=== PATIENT | female | born 1950 | race African-American/Black ===

== ENCOUNTER 2017-10-15 16:19 | Inpatient (IN) | payer MEDICARE, MEDICAID ==
[~2017-10-15] VITALS: Ht 162.6 cm; Wt 118.2 kg
[2017-10-15 17:26] LABS: Basophils # (auto) 0.1 uL; Basophils % (auto) 0.7 % (0.0-2.0); Eosinophils # (auto) 0.2 uL; Eosinophils % (auto) 3.2 % (0.0-7.0); Hematocrit 41.6 % (36.0-46.0); Hemoglobin 13.3 g/dL (12.2-16.2); Lymphocytes # (auto) 1.7 uL; Lymphocytes % (auto) 22.1 % (10.0-50.0); Mean Corpuscular Hemoglobin 29.1 pg (28.0-32.0); Mean Corpuscular Hgb Conc. 32.1 g/dL (32.0-36.0); Mean Corpuscular Volume 90.8 fL (80.0-100.0); Monocytes # (auto) 0.5 uL; Monocytes % (auto) 6.3 % (0.0-12.0); Neutrophils # (auto) 5.2 uL; Neutrophils % (auto) 67.7 % (37.0-80.0); Nucleated Red Blood Cells % 0.1 %; Platelet Count (auto) 322 10^3/uL (140-450); Red Blood Cells 4.58 10^6/uL (4.0-5.20); Red Cell Distribution Width 15.1 % (11.8-14.3); White Blood Cell 7.7 10^3/uL (4.4-10.8)
[2017-10-15 17:34] LABS: Albumin 3.5 g/dL (3.4-5.0); BUN/Creatinine Ratio 12.5; Calcium 9.2 mg/dL (8.5-10.1); Potassium 3.8 mmol/L (3.5-5.1)
[2017-10-15 17:37] LABS: Bilirubin, Total 0.6 mg/dL (0.2-1.0); Total Protein 8.2 g/dL (6.4-8.2)
[2017-10-15 17:38] LABS: Lactic Acid w/Reflex 2.3 mmol/L (0.4-2.0)
[2017-10-16] MEDS ORDERED: cefTRIAXone 1GM/10ml IVPUSH 10 ML IV ONE (00:15)
[2017-10-16] MEDS ORDERED: VANCOMYCIN 1GM/250ML 250 ML IV ONE (00:15)
[2017-10-16] MEDS ORDERED: MEPERIDINE HCL (50 MG/ML) 1 ML VIAL IV ONE (00:15)
[2017-10-16] MEDS ORDERED: ONDANSETRON HCL 4 MG/2 ML VIAL ONE (00:27)
[2017-10-16] MEDS ORDERED: ONDANSETRON HCL 4 MG/2 ML VIAL IV ONE (01:00)
[2017-10-16 01:47] LABS: Urine Bacteria NONE SEEN /hpf (None Seen); Urine Blood Negative /uL (Negative); Urine Mucus FEW (None Seen); Urine Specific Gravity 1.012 (1.001-1.035); Urine WBC 3 /hpf (0 - 5)
[2017-10-16] MEDS ORDERED: TEMAZEPAM 15 MG CAP PO PRN (03:00)
[2017-10-16] MEDS ORDERED: HYDROcodone-ACET 5/325MG TAB PO PRN (03:00)
[2017-10-16] MEDS ORDERED: SODIUM CHLORIDE 0.9% 1,000 ML IV ONE (03:00)
[2017-10-16] MEDS ORDERED: MORPHINE SULFATE 4 MG/ML SYR/VIAL IV PRN (03:00)
[2017-10-16] MEDS ORDERED: ONDANSETRON HCL 4 MG/2 ML VIAL IV PRN (03:00)
[2017-10-16] MEDS ORDERED: ACETAMINOPHEN 325 MG TAB PO PRN (03:00)
[2017-10-16] MEDS ORDERED: METOPROLOL TARTRATE 1MG/1ML-5ML VIAL IV ONE (03:00)
[2017-10-16 06:00] VITALS: BP 155/88
[2017-10-16] MEDS: CLINDAMYCIN 600MG IV 50 ML IV SCH ×3 (06:08→21:07)
[2017-10-16 08:00] VITALS: BP 138/86
[2017-10-16] MEDS ORDERED: PERCOT PO (08:17)
[2017-10-16] MEDS ORDERED: GABA400C PO (08:17)
[2017-10-16] MEDS ORDERED: AMIT25TA9 PO (08:17)
[2017-10-16 09:00] VITALS: BP 138/86
[2017-10-16] MEDS: FAMOTIDINE 20 MG TAB PO SCH ×2 (10:35→21:08)
[2017-10-16] MEDS: METOPROLOL TARTRATE 25 MG TAB PO SCH ×2 (10:35→21:08)
[2017-10-16] MEDS: ENOXAPARIN SOD 40 MG/0.4 ML SYRINGE SC SCH (10:36)
[2017-10-16 12:52] VITALS: BP 132/78
[2017-10-16] MEDS ORDERED: NYSTATIN TOPICAL POWDER 15GM TOP ONE (14:15)
[2017-10-16] MEDS ORDERED: OXYCODONE W/ ACETAMINOPHEN 5/325MG TABLET PO PRN (15:30)
[2017-10-16] MEDS ORDERED: BACL10TA PO (16:00)
[2017-10-16] MEDS ORDERED: BACLOFEN 10 MG TAB PO PRN (16:30)
[2017-10-16] MEDS: SILVER SULFADIAZINE 1 % TOPICAL CREAM 50GM TOP SCH (17:06)
[2017-10-16 17:52] VITALS: BP 143/82
[2017-10-16] MEDS: GABAPENTIN 400 MG CAP PO SCH (21:08)
[2017-10-16 21:37] VITALS: BP 142/75
[2017-10-16] MEDS ORDERED: cefTRIAXone 1GM/10ml IVPUSH 10 ML IV SCH (22:00)
[2017-10-16] MEDS ORDERED: AMITRIPTYLINE HCL 25 MG TAB PO SCH (22:00)
[2017-10-16] MEDS: NYSTATIN TOPICAL POWDER 15GM TOP SCH (22:28)
[2017-10-17 05:00] VITALS: BP 147/77
[2017-10-17 05:34] LABS: Basophils # (auto) 0 uL; Basophils % (auto) 0.4 % (0.0-2.0); Eosinophils # (auto) 0.1 uL; Eosinophils % (auto) 1.2 % (0.0-7.0); Hemoglobin 12.6 g/dL (12.2-16.2); Lymphocytes # (auto) 1.7 uL; Mean Corpuscular Hemoglobin 29.8 pg (28.0-32.0); Mean Corpuscular Hgb Conc. 33.1 g/dL (32.0-36.0); Monocytes # (auto) 0.4 uL; Monocytes % (auto) 5.5 % (0.0-12.0); Neutrophils # (auto) 4.9 uL; Neutrophils % (auto) 68.9 % (37.0-80.0); Nucleated Red Blood Cells % 0.2 %; Platelet Count (auto) 277 10^3/uL (140-450); Red Blood Cells 4.22 10^6/uL (4.0-5.20); Red Cell Distribution Width 14.6 % (11.8-14.3); White Blood Cell 7.2 10^3/uL (4.4-10.8)
[2017-10-17] MEDS: CLINDAMYCIN 600MG IV 50 ML IV SCH (05:43)
[2017-10-17] MEDS: GABAPENTIN 400 MG CAP PO SCH (05:43)
[2017-10-17 05:54] LABS: BUN/Creatinine Ratio 9.5; Bilirubin, Total 0.5 mg/dL (0.2-1.0); Calcium 8.8 mg/dL (8.5-10.1); Potassium 3.2 mmol/L (3.5-5.1); Total Protein 7.5 g/dL (6.4-8.2)
[2017-10-17 07:24] VITALS: BP 155/88
[2017-10-17 08:00] VITALS: BP 155/88
[2017-10-17] MEDS ORDERED: POTASSIUM CHL 10 Meq TABLET PO ONE (08:00)
[2017-10-17] MEDS ORDERED: HCTZ25T PO (09:30)
[2017-10-17] MEDS ORDERED: POTA-167 PO (09:30)
[2017-10-17] MEDS ORDERED: SILV1CRE82 TOP (09:30)
[2017-10-17] MEDS ORDERED: NYS15PW TOP (09:34)
[2017-10-17] MEDS ORDERED: CLIN1CAP4 PO (09:34)
[2017-10-17] MEDS ORDERED: POTASSIUM CHL 10 Meq TABLET PO SCH (10:00)
[2017-10-17] MEDS ORDERED: HCTZ 25 MG TAB PO SCH (10:00)
[2017-10-17 10:12] VITALS: BP 155/88
[2017-10-17 10:26] VITALS: BP 138/78
[2017-10-17] MEDS: FAMOTIDINE 20 MG TAB PO SCH (11:00)
[2017-10-17] MEDS: METOPROLOL TARTRATE 25 MG TAB PO SCH (11:00)
[2017-10-17] MEDS: ENOXAPARIN SOD 40 MG/0.4 ML SYRINGE SC SCH (11:01)
[2017-10-17] MEDS: NYSTATIN TOPICAL POWDER 15GM TOP SCH (11:01)
[2017-10-17] MEDS: SILVER SULFADIAZINE 1 % TOPICAL CREAM 50GM TOP SCH (11:01)
== END 2017-10-17 13:20 | disposition home health service (06) | DRG 603 ==
LOC: ER 16:22 → OVERFLOW 16:23 → WEST WING 10-16 05:12
PROVIDERS: ADMIT Nurse Practitioner; ATTEND Internal Medicine
DX: L03.313 Cellulitis of chest wall (principal); E66.01 Morbid (severe) obesity due to excess calories; L03.116 Cellulitis of left lower limb; G89.29 Other chronic pain; B37.9 Candidiasis, unspecified; M54.9 Dorsalgia, unspecified; Z68.41 Body mass index [BMI] 40.0-44.9, adult; I10 Essential (primary) hypertension; L25.9 Unspecified contact dermatitis, unspecified cause
CPT/HCPCS: 36415; 71045; 80053; 81001; 83605; 85025; 87040; 87070; 87077; 87086; 87186; 87205; 96361; 96374; 96375; 97163; J2405; J3490

== ENCOUNTER 2020-07-24 11:29 | Inpatient (IN) | payer MEDICARE, MEDICAID ==
[~2020-07-24] VITALS: Ht 165.1 cm; Wt 133.8 kg
[~2020-07-24 11:29] MED LIST: ALBUAER3; AMIT50TA3; BACL10TA PO; BUPR10DI; CLIN300C8 PO; DICL-164; FLUC200T35 PO; GABA800T97; HCTZ25T PO; LEVO500T21 PO; NYS15PW TOP; PANT40T; PANT40TA2 PO; PERCOT PO; POTA-167 PO; SACC250C PO; SILV1CRE82 TOP
[2020-07-24] MEDS ORDERED: SODIUM CHLORIDE 0.9% 500 ML IV ONE (12:00)
[2020-07-24] MEDS ORDERED: POTASSIUM CHL 20MEQ/100ML 100 ML IV ONE (14:45)
[2020-07-24 15:11] LABS: Basophils # (auto) 0 10 ^3/uL (0-0.2); Basophils % (auto) 0.9 % (0.0-2.0); Eosinophils # (auto) 0 10 ^3/uL (0-0.8); Hematocrit 45.4 % (36.0-46.0); Hemoglobin 14.9 g/dL (12.2-16.2); Lymphocytes # (auto) 0.8 10 ^3/uL (0.4-5.4); Lymphocytes % (auto) 19.8 % (10.0-50.0); Mean Corpuscular Hemoglobin 27.2 pg (28.0-32.0); Mean Corpuscular Hgb Conc. 32.8 g/dL (32.0-36.0); Mean Corpuscular Volume 82.8 fL (80.0-100.0); Monocytes # (auto) 0.4 10 ^3/uL (0-1.3); Neutrophils # (auto) 2.7 10 ^3/uL (1.6-8.6); Neutrophils % (auto) 69.3 % (37.0-80.0); Nucleated Red Blood Cells % 0.2 %; Platelet Count (auto) 208 10^3/uL (140-450); Red Blood Cells 5.48 10^6/uL (4.0-5.20); Red Cell Distribution Width 16.9 % (11.8-14.3)
[2020-07-24 15:14] LABS: Albumin 3.1 g/dL (3.4-5.0); Anion Gap 9 (5-15); Blood Urea Nitrogen 21 mg/dL (7-18); Carbon Dioxide 27 mmol/L (21-32); Chloride 95 mmol/L (98-107); Glucose 116 mg/dL (74-106); Potassium 4.1 mmol/L (3.5-5.1); Sodium 131 mmol/L (136-145)
[2020-07-24] MEDS ORDERED: methylPREDNISolone SOD SUCC 125 MG/2 ML VL IV ONE (15:15)
[2020-07-24 15:19] LABS: Alanine Aminotransferase 57 U/L (13-56); Alkaline Phosphatase 79 U/L (45-117); Aspartate Aminotransferase 77 U/L (15-37); BUN/Creatinine Ratio 19.4; Bilirubin, Total 0.5 mg/dL (0.2-1.0); GFR African American 65 mL/min; GFR Non-African American 54 mL/min; Total Protein 8.1 g/dL (6.4-8.2)
[2020-07-24 15:23] LABS: Urine Amorphous Crystal FEW /hpf (None Seen); Urine Bacteria MOD /hpf (None Seen); Urine Blood 2+ /uL (Negative); Urine Mucus FEW (None Seen); Urine Specific Gravity 1.019 (1.001-1.035); Urine WBC 120 /hpf (0 - 5); Urine WBC Clumps PRESENT /hpf (None Seen)
[2020-07-24] MEDS ORDERED: ACETAMINOPHEN 650 mg PER 20.3 mL UD PO ONE (15:30)
[2020-07-24] MEDS ORDERED: cefTRIAXone 1GM/50ML D5W 50 ML IV ONE (15:45)
[2020-07-24] MEDS ORDERED: HYDROcodone-ACET 5/325MG TAB PO PRN (17:45)
[2020-07-24] MEDS ORDERED: REMDESIVIR PER PHARMACY IV SCH (17:45)
[2020-07-24] MEDS ORDERED: ACETAMINOPHEN 500 MG TAB PO PRN ×2 (17:45)
[2020-07-24] MEDS ORDERED: SODIUM CHLORIDE 0.9% 1,000 ML IV ONE (17:45)
[2020-07-24] MEDS ORDERED: MORPHINE SULF INJ 2 MG/ML SYRINGE 1ML IV PRN (17:45)
[2020-07-24] MEDS ORDERED: NITROGLYCERIN 0.4 MG SL TAB SL PRN (17:45)
[2020-07-24] MEDS ORDERED: MELO1TAB73 PO (18:02)
[2020-07-24] MEDS ORDERED: WARF2TAB49 PO (18:02)
[2020-07-24] MEDS ORDERED: HYDR-531 PO (18:02)
[2020-07-24] MEDS ORDERED: SIMV-8 PO (18:02)
[2020-07-24] MEDS ORDERED: TRIA75TA55 PO (18:02)
[2020-07-24] MEDS: AZITHROMYCIN 500MG/D5WorNS 250ml IV SCH (18:05)
[2020-07-24] MEDS ORDERED: REMDESIVIR 200 MG in NS 210ml LOADING DOSE ADULT IV ONE (19:00)
[2020-07-24 19:10] LABS: Magnesium 2.5 mg/dL (1.6-2.6)
[2020-07-24 19:22] LABS: INR 2.27 (0.9-1.15); Partial Thromboplastin Time 46.7 sec (23.0-31.2)
[2020-07-24] MEDS ORDERED: WARFARIN SODIUM 5 MG TAB PO ONE (21:45)
[2020-07-24] MEDS: BUDESONIDE (INHALATION) 180 MCG IH IN SCH (22:00)
[2020-07-24] MEDS: ENOXAPARIN SOD 40 MG/0.4 ML SYRINGE SC SCH (22:37)
--- NOTE | 2020-07-25 02:30 | NUR ---
Telemetry admit from [facility] admitted to Telemetry unit. Patient oriented to DARON WHITING, RN primary RN, unit, room, bed, and unit policies regarding patient care and visiting hours. Patient now on continuous telemetry monitoring, tele box # 96 and telemetry reading on arrival to unit is NSR HR 75. Patient placed on bedside oxygen, weighed by bedscale and encouraged to call if they need something. All questions and concerns addressed, patient verbalized understanding.
--- NOTE | 2020-07-25 04:00 | NUR ---
Bowel movement Patient had diarrhea. CLeaned up patient and new linens provided. Patient is a two person assist. Patient tolerated well. No Distress noted. Willl continue to monitor.
--- NOTE | 2020-07-25 04:10 | NUR ---
Patient refused plasma Explained to patient that doctor ordered convolasent plasma for patient, to help fight covid infection. Patient states she does not want any blood products. She states she does not feel she needs it at this time. Educated patient, patient still refused. Will let day shift RN KNOW. Will continue to monitor.
[2020-07-25 05:44] VITALS: BP 124/77
--- NOTE | 2020-07-25 07:17 | NUR ---
Closing note Endorsed care to day shift RN, no sob or distress noted.
[2020-07-25] MEDS: BUDESONIDE (INHALATION) 180 MCG IH IN SCH ×3 (07:41→22:54)
--- NOTE | 2020-07-25 07:45 | NUR ---
Opening note Assumed care of patient from NOC RN. Patient is AOx4 no s/s of distress noted. Bed is in lowest locked position, side rails up x2, and call light is within reach. Updated patient on plan of care and patient verbalized understanding. Will continue to monitor.
[2020-07-25 08:19] LABS: Basophils # (auto) 0 10 ^3/uL (0-0.2); Eosinophils # (auto) 0 10 ^3/uL (0-0.8); Lymphocytes # (auto) 0.6 10 ^3/uL (0.4-5.4); Monocytes # (auto) 0.2 10 ^3/uL (0-1.3); Neutrophils # (auto) 1.2 10 ^3/uL (1.6-8.6)
[2020-07-25 08:22] LABS: Basophils % (auto) 0.3 % (0.0-2.0); Hemoglobin 14.4 g/dL (12.2-16.2); Lymphocytes % (auto) 31.1 % (10.0-50.0); Mean Corpuscular Hemoglobin 27.2 pg (28.0-32.0); Mean Corpuscular Hgb Conc. 32.7 g/dL (32.0-36.0); Mean Corpuscular Volume 83.2 fL (80.0-100.0); Monocytes % (auto) 11.2 % (0.0-12.0); Neutrophils % (auto) 57.4 % (37.0-80.0); Nucleated Red Blood Cells % 0.2 %; Platelet Count (auto) 194 10^3/uL (140-450); Red Blood Cells 5.28 10^6/uL (4.0-5.20); Red Cell Distribution Width 16.8 % (11.8-14.3); White Blood Cell 2.1 10^3/uL (4.4-10.8)
[2020-07-25 08:25] LABS: INR 2.47 (0.9-1.15)
[2020-07-25 08:35] LABS: Potassium 3.8 mmol/L (3.5-5.1)
[2020-07-25 08:42] LABS: Albumin 2.8 g/dL (3.4-5.0); BUN/Creatinine Ratio 21.2; Bilirubin, Total 0.4 mg/dL (0.2-1.0); Calcium 7.8 mg/dL (8.5-10.1); Total Protein 7.6 g/dL (6.4-8.2)
[2020-07-25 09:30] VITALS: BP 125/67
[2020-07-25] MEDS: cefTRIAXone 1GM/50ML D5W 50 ML IV SCH (10:28)
[2020-07-25] MEDS: CHOLECALCIFEROL (VITD3) 2,000 UNIT CAP PO SCH (10:29)
[2020-07-25] MEDS: ZINC SULFATE 220mg CAP or TAB PO SCH (10:29)
[2020-07-25] MEDS: ASCORBIC ACID 1,000 MG TAB PO SCH (10:29)
[2020-07-25] MEDS: FAMOTIDINE 20 MG TAB PO SCH (10:29)
[2020-07-25] MEDS: DexAMETHasone SOD PHOS 10MG/1ML VIAL INJ IV SCH (10:29)
[2020-07-25] MEDS: AZITHROMYCIN 500MG/D5WorNS 250ml IV SCH (10:30)
[2020-07-25] MEDS: ENOXAPARIN SOD 40 MG/0.4 ML SYRINGE SC SCH (10:30)
--- NOTE | 2020-07-25 11:00 | NUR ---
IV insertion IV access obtained, via clean sterile technique by inserting 22 gauge catheter at right wrist after 1 attempts. IV secured properly. No trauma to site. Patient tolerated well.
--- NOTE | 2020-07-25 11:05 | NUR ---
Assessment Patient is a 70 year old female, who is alert and oriented. Patient cognitive abilities are intact. Patient stated that she need assistance for all ADL's and patient stated that she is bed bound. Patient stated that she lives with her son ( Mahendra [phone]). Patient stated that she will return home post discharge. Patient stated that she is retired and receives social security as income. Patient stated that she receives home health aid from [facility]. Patient stated that she needs transportation post discharge. Patient states that her son and grandson are her support system. Patient is receptive to receive Advance Directive forms. Discharge planning: Patient will return home post discharge, patient will resume home health care from [facility]. will provide Advance Directive form prior to patient being discharge. There are no other discharge needs to address at the moment. Addendum: 07/25/20 at 1114 by ERINN HERNANDEZ Amended: Links added.
[2020-07-25] MEDS: ALBUTEROL SULF HFA 90MCG INH 200DOSE IN PRN ×2 (11:09→22:54)
--- NOTE | 2020-07-25 11:20 | NUR ---
WOUND CARE NOTE: WOUND CONSULT FOR PATIENT WITH SKIN TEARS TO CHEST, SACRUM, HIP. PATIENT ADMITTED TO [facility] WITH DIAGNOSIS OF ACUTE HYPOXIC RESPIRATORY FAILURE. CURRENT ROBERTO SCORE IS 15. PATIENT IN COVID UNIT, ON AIRBORNE ISOLATION. SKIN/WOUND CARE PLAN IMPLEMENTED. PATIENT IS REFUSING ASSESSMENT, PHOTOS AT THIS TIME. PATIENT WANTS A FULL BED BATH PRIOR TO EXAM. ADVISED PATIENT THAT MAY NOT HAVE TIME TO GET BACK TO COVID UNIT TO FULLY ASSESS PATIENT. PATIENT VERBALIZED UNDERSTANDING, STILL REFUSING WOUND CARE ASSESSMENT. RECOMMEND: FREQUENT TURN SCHEDULE Q 2 HOURS, PRN CONDITION PERMITS, WITH PRESSURE REDISTRIBUTION USING PILLOWS/WEDGES, BID/PRN APPLICATION OF MOISTURE BARRIER CREAM TO BILATERAL BUTTOCKS/PERINEUM, EOD, PRN APPLICATION WITH THERAHONEY, OPTIFOAM GENTLE DRESSINGS TO SKIN TEARS OF SACRUM/BUTTOCKS, HIP, CHEST, SKIN/WOUND CARE PLAN, CONTINUED MONITORING BY WOUND CARE TEAM. WILL ATTEMPT TO SEE PATIENT AGAIN AT LATER TIME.
--- NOTE | 2020-07-25 11:44 | NUR ---
Nutrition Assessment/Consult Notes Please refer to link for full assessment notes. Est Energy needs: 2571-5057 kcals (12-15 kcal/kgBW) Est Protein needs: 135-149 gms/day (1.0-1.1 gm/kgBW) Will continue to monitor and reassess prn. Addendum: 07/25/20 at [address] Amended: Links added.
--- NOTE | 2020-07-25 12:20 | NUR ---
Physician rounding Dr. Dominguez at bedside. MD updated patient on plan of care and patient verbalized understanding. No new orders received, will continue to monitor.
--- NOTE | 2020-07-25 12:25 | NUR ---
IV REMOVED IV noted to be dislodged and leaking. IV was removed and pressure dressing was applied.
[2020-07-25 13:00] VITALS: BP 119/65
--- NOTE | 2020-07-25 13:27 | NUR ---
Call from pharmacy Received call from Kathy pharmacist regarding if MD wants patient on lovenox or coumadin. Told pharmacist that MD will be contacted.
--- NOTE | 2020-07-25 13:30 | NUR ---
Sivan PENNINGTON. MD Alberto chaudhari.
--- NOTE | 2020-07-25 13:32 | NUR ---
Received call back Received call from Dr. Dominguez, per D/C lovenox and continue warfarin. Will notify Kathy Pharmacist.
--- NOTE | 2020-07-25 13:37 | NUR ---
Notified Pharmacist Notify Kathy regarding MD orders.
--- NOTE | 2020-07-25 14:00 | NUR ---
IV insertion IV access obtained, via clean sterile technique by inserting 22 gauge catheter at LEFT HAND after 1 attempts. IV secured properly. No trauma to site. Patient tolerated well.
[2020-07-25] MEDS: ONDANSETRON HCL 4 MG/2 ML VIAL IV PRN (15:55)
[2020-07-25] MEDS: MORPHINE SULF INJ 2 MG/ML SYRINGE 1ML IV PRN (15:55)
[2020-07-25 17:00] VITALS: BP 107/65
[2020-07-25] MEDS ORDERED: WARFARIN SODIUM 2 MG TAB PO ONE (17:00)
[2020-07-25] MEDS: REMDESIVIR 100 MG in SODIUM CHL 0.9% 250 ML IV SCH (17:27)
--- NOTE | 2020-07-25 17:27 | NUR ---
pre remdesivir vitals 1070/65, heart rate 81 BPM.
--- NOTE | 2020-07-25 17:42 | NUR ---
15 min remdesivir vitals 15 minuet after administration vitals are 113/66, heart rate 107. No s/s of distress or SOB noted. Patient laying in bed comfortably.
--- NOTE | 2020-07-25 19:25 | NUR ---
end of shift note endorsed care to NOC RN. No s/s of distress noted.
--- NOTE | 2020-07-25 19:26 | NUR ---
Opening Shift Note Assumed care of patient, awake and alertx4. No S/S of distress/SOB. Patient is on 3 l/min NC. Bed is in lowest position and locked. Call light within reach. Board updated. Tele box number matches monitor and leads are in correct placement. Instructed on POC and to call for assist PRN, will continue to monitor for changes Q1hr and PRN.
--- NOTE | 2020-07-25 19:40 | NUR ---
1 hour post-Remdesevir vitals: BP:106/61, HR: 74, O2: 97%, RR: 18, Temp: 98.4. Will continue to monitor.
[2020-07-25 21:00] VITALS: BP 123/54
--- NOTE | 2020-07-25 22:14 | NUR ---
Received call from blood bank r/t convalescent plasma. It had arrived. I spoke to patient who once more said she does not want the plasma. No consents signed. Notified blood bank. They will not be thawing plasma.
[2020-07-26] MEDS: MORPHINE SULF INJ 2 MG/ML SYRINGE 1ML IV PRN (00:19)
[2020-07-26] MEDS: ONDANSETRON HCL 4 MG/2 ML VIAL IV PRN (00:19)
[2020-07-26 05:00] VITALS: BP 110/66
[2020-07-26] MEDS: BUDESONIDE (INHALATION) 180 MCG IH IN SCH ×2 (06:47→19:35)
[2020-07-26 07:51] LABS: INR 3.54 (0.9-1.15)
[2020-07-26 07:53] LABS: Potassium 3.5 mmol/L (3.5-5.1)
[2020-07-26 08:00] LABS: BUN/Creatinine Ratio 19.8; Bilirubin, Total 0.4 mg/dL (0.2-1.0); Calcium 8.2 mg/dL (8.5-10.1); Total Protein 7.9 g/dL (6.4-8.2)
[2020-07-26 09:00] VITALS: BP 140/69
[2020-07-26] MEDS: cefTRIAXone 1GM/50ML D5W 50 ML IV SCH (10:04)
[2020-07-26] MEDS: FAMOTIDINE 20 MG TAB PO SCH (10:05)
[2020-07-26] MEDS: ASCORBIC ACID 1,000 MG TAB PO SCH (10:05)
[2020-07-26] MEDS: ZINC SULFATE 220mg CAP or TAB PO SCH (10:05)
[2020-07-26] MEDS: DexAMETHasone SOD PHOS 10MG/1ML VIAL INJ IV SCH (10:06)
[2020-07-26] MEDS: CHOLECALCIFEROL (VITD3) 2,000 UNIT CAP PO SCH (10:06)
[2020-07-26] MEDS: AZITHROMYCIN 500MG/D5WorNS 250ml IV SCH (10:45)
[2020-07-26] MEDS ORDERED: PANTOPRAZOLE 40 MG TAB PO ONE (12:15)
[2020-07-26 12:54] VITALS: BP 133/77
[2020-07-26] MEDS: metroNIDAZOLE 500 MG TAB PO SCH ×2 (16:03→21:52)
[2020-07-26] MEDS: REMDESIVIR 100 MG in SODIUM CHL 0.9% 250 ML IV SCH (16:51)
[2020-07-26 17:00] VITALS: BP 129/70
--- NOTE | 2020-07-26 17:45 | NUR ---
REMDESIVIR V/S 1645-PRE V/S 129/70 HR 69 1700 15 V/S 116/62 HR 70 1745 POST 118/70 HR 71 NO S/S OF DISTRESS NOTED
--- NOTE | 2020-07-26 19:25 | NUR ---
Opening note Assumed care of patient, patient is alert and orientated x4. no sob or distress noted. POC reviewed. Bed is locked in lowest position, side rails up x2. Call light within reach, will continue to monitor q1hr and PRN.
[2020-07-26] MEDS: ALBUTEROL SULF HFA 90MCG INH 200DOSE IN PRN (19:41)
[2020-07-26 23:13] VITALS: BP 136/67
--- NOTE | 2020-07-27 00:10 | NUR ---
IV removal due to infiltration. IV DC'd with clean sterile technique, catheter fully intact. Pressure dressing applied to site. Patient tolerated well.
--- NOTE | 2020-07-27 03:00 | NUR ---
IV insertion IV access obtained, via clean sterile technique by inserting 22 gauge catheter at LEFT wrist after 2 attempt(s). IV secured properly. No trauma to site. Patient tolerated well.
[2020-07-27] MEDS: metroNIDAZOLE 500 MG TAB PO SCH (06:02)
[2020-07-27 06:12] VITALS: BP 143/74
[2020-07-27] MEDS: BUDESONIDE (INHALATION) 180 MCG IH IN SCH ×2 (06:45→20:28)
--- NOTE | 2020-07-27 07:15 | NUR ---
Opening Shift Note Received report from nurse. Assumed care of patient, awake and alert. No S/S of distress/SOB or pain. Instructed on POC and to call for assist PRN, will continue to monitor for changes Q1hr and PRN.
--- NOTE | 2020-07-27 07:33 | NUR ---
Closing note Endorsed care to day shift RN. no SOB or distress noted.
[2020-07-27 08:27] LABS: Potassium 3.2 mmol/L (3.5-5.1)
[2020-07-27 08:33] LABS: Albumin 2.9 g/dL (3.4-5.0); BUN/Creatinine Ratio 15.4; Bilirubin, Total 0.6 mg/dL (0.2-1.0); Calcium 8.1 mg/dL (8.5-10.1); INR 4.28 (0.9-1.15); Total Protein 7.9 g/dL (6.4-8.2)
[2020-07-27 09:00] VITALS: BP 132/73
[2020-07-27] MEDS: cefTRIAXone 1GM/50ML D5W 50 ML IV SCH (09:00)
[2020-07-27] MEDS: ALBUTEROL SULF HFA 90MCG INH 200DOSE IN PRN ×2 (09:21→20:28)
[2020-07-27] MEDS: FLORASTOR (S. BOULARDII) 250 MG CAP PO SCH (10:32)
[2020-07-27] MEDS: DexAMETHasone SOD PHOS 10MG/1ML VIAL INJ IV SCH (10:32)
[2020-07-27] MEDS: ZINC SULFATE 220mg CAP or TAB PO SCH (10:32)
[2020-07-27] MEDS: CHOLECALCIFEROL (VITD3) 2,000 UNIT CAP PO SCH (10:33)
[2020-07-27] MEDS: ASCORBIC ACID 1,000 MG TAB PO SCH (10:33)
[2020-07-27] MEDS: PANTOPRAZOLE 40 MG TAB PO SCH (10:33)
[2020-07-27] MEDS ORDERED: AZITHROMYCIN 500MG/D5WorNS 250ml IV SCH (10:45)
--- NOTE | 2020-07-27 12:35 | NUR ---
ROUNDS Dr Dominguez at bedside for rounds, new orders received and followed through. Patient updated on plan of care, verbalized understanding.
[2020-07-27 13:00] VITALS: BP 137/76
[2020-07-27] MEDS ORDERED: POTASSIUM CHL 20 Meq TABLET PO ONE (14:45)
[2020-07-27 16:37] VITALS: BP 137/82
[2020-07-27] MEDS: REMDESIVIR 100 MG in SODIUM CHL 0.9% 250 ML IV SCH (17:20)
--- NOTE | 2020-07-27 17:20 | NUR ---
Remdesivir pre vitals 98.6 83 19 137/82 96% 2LNC
--- NOTE | 2020-07-27 17:35 | NUR ---
Remdesivir pre vitals 98.6 83 19 137/82 96% 2LNC Addendum: 07/27/20 at 1747 by GERARDO GREGG RN RN Incorrect time.
--- NOTE | 2020-07-27 17:35 | NUR ---
Remdesivir 15 minute vitals 97.4 18 82 133/70 96% 2LNC
--- NOTE | 2020-07-27 18:20 | NUR ---
Remdesivir post vitals 97.2 136/64 75 18 95% 2LNC
--- NOTE | 2020-07-27 19:35 | NUR ---
Opening note Assumed care of patient, patient is alert and orientated x4. No sob or distress noted. Patient is on 2L nasal canula. saturation is 100% Bed is locked in lowest position side rails up x2. Patient is resting in bed turned patient to right side. Instructed to call when needed patient verbalized understanding. Call light within reach. will continue to monitor q1hr and PRN.
[2020-07-27 20:16] VITALS: BP 136/75
[2020-07-27 22:00] VITALS: BP 136/75
[2020-07-28 05:00] VITALS: BP 139/72
--- NOTE | 2020-07-28 07:04 | NUR ---
Closing note Endorsed care to day shift RN. No sob or distress noted.
--- NOTE | 2020-07-28 07:05 | NUR ---
Opening Shift Note Received report from night nurse. Assumed care of patient, awake and alert. No S/S of distress/SOB or pain. Instructed on POC and to call for assist PRN, will continue to monitor for changes Q1hr and PRN.
[2020-07-28 08:07] LABS: BUN/Creatinine Ratio 15.6; Bilirubin, Total 0.6 mg/dL (0.2-1.0); Total Protein 7.9 g/dL (6.4-8.2)
[2020-07-28 08:45] LABS: INR 4.29 (0.9-1.15)
[2020-07-28] MEDS: cefTRIAXone 1GM/50ML D5W 50 ML IV SCH (08:48)
[2020-07-28] MEDS: MORPHINE SULF INJ 2 MG/ML SYRINGE 1ML IV PRN (09:04)
[2020-07-28] MEDS: FLORASTOR (S. BOULARDII) 250 MG CAP PO SCH (10:00)
[2020-07-28] MEDS: AZITHROMYCIN 250 MG TAB PO SCH (10:00)
[2020-07-28] MEDS: CHOLECALCIFEROL (VITD3) 2,000 UNIT CAP PO SCH (10:00)
[2020-07-28] MEDS: PANTOPRAZOLE 40 MG TAB PO SCH (10:00)
[2020-07-28] MEDS: ZINC SULFATE 220mg CAP or TAB PO SCH (10:00)
[2020-07-28] MEDS: DexAMETHasone 4 MG TAB PO SCH (10:00)
[2020-07-28] MEDS: ASCORBIC ACID 1,000 MG TAB PO SCH (10:00)
[2020-07-28] MEDS: BUDESONIDE (INHALATION) 180 MCG IH IN SCH ×2 (10:00→19:15)
--- NOTE | 2020-07-28 11:00 | NUR ---
IV removal IV DC'd with clean sterile technique, catheter fully intact. Pressure dressing applied to site. Patient tolerated well.
--- NOTE | 2020-07-28 11:10 | NUR ---
IV insertion IV access obtained, via clean sterile technique by inserting 22 gauge catheter at Left AC. IV secured properly. No trauma to site. Patient tolerated well.
[2020-07-28] MEDS: ONDANSETRON HCL 4 MG/2 ML VIAL IV PRN (12:03)
[2020-07-28] MEDS ORDERED: POTASSIUM EFFERVESENT TAB 25 MEQ PO ONE (13:00)
--- NOTE | 2020-07-28 14:03 | NUR ---
Nutrition Followup Notes Wt: 135.7 kg Pt is positive for COVID, in isolation. Pt is with a cardiac diet, with inadequate PO of 50% x 4 per RN doc Est Energy needs: 0219-2091 kcals (12-15 kcal/kgBW), Est Protein needs: 135-149 gms/day (1.0-1.1 gm/kgBW). Will continue to monitor and reassess prn. LABS: CA 8.0 L, ALB 3.0 L GI: Pt had 2 BM today per RN doc BS: 14 mod risk. Refer to wound assessment report for full details PES: 1) Obesity aeb BMI of 49.5 kg/m2 r/t energy intake in excess of energy needs 2) Altered nutrition related lab values aeb hyperglycemia, hypocalcemia, hypoalbuminemia r/t current medical condition Comments: Will continue to monitor PO status, skin status, pertinent labs and weight trends. Will f/u in 3-5 days Rec: 1) Consider a daily MVI with 500mg Vit C BID for wounds. 2) Refer pt to a RD upon D/C. 3) Continue current plan of care
[2020-07-28] MEDS: ALBUTEROL SULF HFA 90MCG INH 200DOSE IN PRN (15:57)
[2020-07-28] MEDS: REMDESIVIR 100 MG in SODIUM CHL 0.9% 250 ML IV SCH (17:07)
--- NOTE | 2020-07-28 17:07 | NUR ---
Remdesivir pre VS BP 128/70 HR 75 O2 95% 2LNC RR 18
--- NOTE | 2020-07-28 17:22 | NUR ---
Remdesivir 15 minute VS BP 125/71 HR 80 O2 95%2LNC RR 19
--- NOTE | 2020-07-28 18:07 | NUR ---
Remdesivir post VS BP 139/70 HR 84 O2 97%2LNC RR 19
--- NOTE | 2020-07-28 19:20 | NUR ---
Opening note Assumed care of patient, patient is alert and orientated x4. No SOB or distress noted. Patient is on 2L nasal canula saturating at 96%. Bed is locked in lowest position, side rails up x2 POC discussed all questions answered at this time. Call light within reach, will continue to monitor q1hr and PRN.
[2020-07-28 22:00] VITALS: BP 140/86
--- NOTE | 2020-07-28 22:00 | NUR ---
Bed bath RECEIVING ROOM CLERK and this RN gave patient a bed bath. Patient also had a bowel movement. Patient tolerated well. Patient is now resting in bed. Will continue to monitor.
[2020-07-29 05:00] VITALS: BP 138/78
--- NOTE | 2020-07-29 07:30 | NUR ---
Opening Shift Note Upon entering room patient awake and alert. No signs of distress or pain noted. Patient relaxed and calm. Instructed patient on the use of the call light PRN, call light is within reach. Safety measures are in place including bed locked and in lowest position with two side rails up. Will continue to monitor for changes.
[2020-07-29 08:48] LABS: Basophils # (auto) 0 10 ^3/uL (0-0.2); Basophils % (auto) 0.2 % (0.0-2.0); Eosinophils # (auto) 0 10 ^3/uL (0-0.8); Eosinophils % (auto) 0.2 % (0.0-7.0); Hematocrit 50.1 % (36.0-46.0); Hemoglobin 16.3 g/dL (12.2-16.2); Lymphocytes # (auto) 1.1 10 ^3/uL (0.4-5.4); Lymphocytes % (auto) 24.5 % (10.0-50.0); Mean Corpuscular Hemoglobin 26.6 pg (28.0-32.0); Mean Corpuscular Hgb Conc. 32.5 g/dL (32.0-36.0); Monocytes # (auto) 0.6 10 ^3/uL (0-1.3); Monocytes % (auto) 12.2 % (0.0-12.0); Neutrophils # (auto) 2.9 10 ^3/uL (1.6-8.6); Neutrophils % (auto) 62.9 % (37.0-80.0); Nucleated Red Blood Cells % 0.1 %; Platelet Count (auto) 265 10^3/uL (140-450); Red Blood Cells 6.11 10^6/uL (4.0-5.20); Red Cell Distribution Width 17.2 % (11.8-14.3); White Blood Cell 4.6 10^3/uL (4.4-10.8)
[2020-07-29 08:54] LABS: Calcium 8.2 mg/dL (8.5-10.1)
[2020-07-29 09:00] VITALS: BP 119/69
[2020-07-29 09:00] LABS: Albumin 3.3 g/dL (3.4-5.0); BUN/Creatinine Ratio 17.6; Bilirubin, Total 0.9 mg/dL (0.2-1.0); Total Protein 8.5 g/dL (6.4-8.2)
[2020-07-29 09:04] LABS: Potassium 2.9 mmol/L (3.5-5.1)
--- NOTE | 2020-07-29 09:04 | NUR ---
CRITICAL LAB VALUES CRITICAL POTASSIUM 2.9 CRITICAL INR 4.74 WILL NOTIFY DOCTOR
[2020-07-29 09:07] LABS: INR 4.74 (0.9-1.15)
[2020-07-29] MEDS: CHOLECALCIFEROL (VITD3) 2,000 UNIT CAP PO SCH (10:00)
[2020-07-29] MEDS: ZINC SULFATE 220mg CAP or TAB PO SCH (10:00)
[2020-07-29] MEDS: DexAMETHasone 4 MG TAB PO SCH (10:00)
[2020-07-29] MEDS: FLORASTOR (S. BOULARDII) 250 MG CAP PO SCH (10:00)
[2020-07-29] MEDS: AZITHROMYCIN 250 MG TAB PO SCH (10:00)
[2020-07-29] MEDS: ASCORBIC ACID 1,000 MG TAB PO SCH (10:00)
[2020-07-29] MEDS: PANTOPRAZOLE 40 MG TAB PO SCH (10:10)
--- NOTE | 2020-07-29 10:30 | NUR ---
PATIENT REFUSED MORNING MEDS Patient refused all morning medications except Protonix. Educated patient on the importance of taking medications as scheduled. Patient verbalized understanding but continues to state, "It makes me sick, I don't want to take any pills besides my Protonix for heartburn".
[2020-07-29] MEDS: ALBUTEROL SULF HFA 90MCG INH 200DOSE IN PRN ×2 (11:00→11:04)
[2020-07-29] MEDS ORDERED: POTASSIUM CHL 20 Meq TABLET PO ONE (11:30)
[2020-07-29] MEDS: ONDANSETRON HCL 4 MG/2 ML VIAL IV PRN (12:06)
--- NOTE | 2020-07-29 12:16 | NUR ---
DR. OWENS AT BEDSIDE. ORDERS RECEIVED, WILL PLACE AND CARRY OUT.
--- NOTE | 2020-07-29 12:32 | NUR ---
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 SPOKE WITH [employer] REGARDING HOME HEALTH AND TRANSPORTATION HOME. SHE STATED SHE WOULD GET BACK TO ME ON TRANSPORTATION NEEDS.
[2020-07-29 13:00] VITALS: BP 123/77
--- NOTE | 2020-07-29 13:10 | NUR ---
Community Health Coordinator Weekend Received a page from MARIANA Chapa at 12:26 regarding social service consult for transportation home and to resume home health service with [facility]. Informed MARIANA Chapa I will contact Community Health Coordinator [facility] to request transportation. Placed call to fiberglass grinder IE spoke to Valeriy at 12:30 left a message requesting transportation for patient. Received a call from Valeriy at 13:00 advising me to fax the transportation request form to . Faxed transportation form request to [facility] requesting for a 15:00 cigar packer and picker time via [employer]. Placed call to Valeriy advising him transportation form has been faxed and informed him patient is positive COVID. Per Valeriy due to patient being positive COVID transportation time may change. Per Valeriy with [facility] he will contact bedside nurse or myself with a accurate ETA. Informed bedside nurse.
--- NOTE | 2020-07-29 13:38 | NUR ---
DATABASE MARKETING ANALYST WEEKEND Received a call from Valeriy with [facility] at 13:30 advising me transportation has been arranged with Jason Blackburn via [employer] with a 15:30 berry picker machine operator time. Informed MARIANA Bowers covering MARIANA Chapa.
--- NOTE | 2020-07-29 14:39 | NUR ---
DISCHARGE WOUND CARE PHOTOS TAKEN.
--- NOTE | 2020-07-29 16:00 | NUR ---
Patient Discharged Discharge instructions given as ordered. Encourage to follow up with PMD as instructed. All questions and concerns addressed. Patient verbalized understanding. IV removed with catheter intact, pressure dressing applied. Telemetry unit returned to ICU. Patient taken via gurney with all personal belongings, accompanied by staff. No distress noted at time of departure.
[2020-07-30] MEDS ORDERED: POTASSIUM CHL 20 Meq TABLET PO ONE (10:00)
== END 2020-07-29 15:51 | disposition home health service (06) | DRG 177 ==
LOC: EDBD 11:29 → ER 11:29 → TELE 17:32 → TELE-EAST 23:52
PROVIDERS: ADMIT Nurse Practitioner Acute Care; ATTEND Internal Medicine
PROC: XW033E5 Introduction of Remdesivir Anti-infective into Peripheral Vein, Percutaneous Approach, New Technology Group 5 (ICD-10-PCS; principal; 2020-07-24)
DX: U07.1 COVID-19 (principal); J12.89 Other viral pneumonia; J96.01 Acute respiratory failure with hypoxia; J96.21 Acute and chronic respiratory failure with hypoxia; E87.1 Hypo-osmolality and hyponatremia; Z68.42 Body mass index [BMI] 45.0-49.9, adult; N18.30 Chronic kidney disease, stage 3 unspecified; E78.5 Hyperlipidemia, unspecified; E88.09 Other disorders of plasma-protein metabolism, not elsewhere classified; E66.01 Morbid (severe) obesity due to excess calories; N30.90 Cystitis, unspecified without hematuria; L89.159 Pressure ulcer of sacral region, unspecified stage; Z86.711 Personal history of pulmonary embolism; Z74.01 Bed confinement status; Z79.899 Other long term (current) drug therapy; Z82.49 Family history of ischemic heart disease and other diseases of the circulatory system; Z83.3 Family history of diabetes mellitus; Z86.73 Personal history of transient ischemic attack (TIA), and cerebral infarction without residual deficits; Z87.440 Personal history of urinary (tract) infections
CPT/HCPCS: 36415; 71045; 80053; 81001; 82728; 83036; 83615; 83735; 84484; 85025; 85379; 85610; 85730; 86141; 86850; 86900; 86901; 87040; 87086; 87426; 87493; 93970; 94640; 96361; 96365; 99291; G0378; J0696; J1100; J2405